=== PATIENT | female | born 1980 | race Caucasian/White ===

== ENCOUNTER 2017-02-28 01:19 | Emergency (ER) | payer MEDICAID ==
[2017-02-28 02:13] LABS: BASOPHIL % 0.3 % (0-2); PLATELET COUNT 208 x10^3mcL (130-400); RED CELL DISTRIBUTION WIDTH 13.5 % (11.5-14.5)
[2017-02-28 02:38] LABS: ALBUMIN 3.6 g/dL (3.4-5.0); ALKALINE PHOSPHATASE 48 U/L (46-116); ALT/SGPT 26 U/L (14-59); AST/SGOT 21 U/L (15-37); BILIRUBIN TOTAL 0.4 mg/dL (0.20-1.00); CALCIUM 8.3 mg/dL (8.5-10.1); CARBON DIOXIDE 29.5 mmol/L (21-32); CHLORIDE SERUM 103 mmol/L (98-107); CREATININE SERUM 0.9 mg/dL (0.6-1.0); GFR1 > 60 mL/min; GLUCOSE SERUM 110 mg/dL (74-106); POTASSIUM SERUM 3.5 mmol/L (3.5-5.1); SODIUM SERUM 137 mmol/L (136-145); TOTAL PROTEIN, SERUM 7.2 g/dL (6.4-8.2)
[2017-02-28 02:48] LABS: CK-MB < 0.5 ng/mL (0-3.6); CREATINE KINASE 86 U/L (26-192)
[2017-02-28 03:30] VITALS: BP 105/67
== END 2017-02-28 03:30 | disposition home or self-care (01) ==
LOC: ED 01:19
PROVIDERS: Emergency Medicine
DX: J18.9 Pneumonia, unspecified organism (principal)
CPT/HCPCS: 36415; 85378; Q0092

== ENCOUNTER 2017-09-18 16:02 | Emergency (ER) | payer SELFPAY ==
[~2017-09-18] VITALS: Ht 160 cm; Wt 70.8 kg
[2017-09-18 17:47] VITALS: BP 130/75
== END 2017-09-18 17:47 | disposition home or self-care (01) ==
LOC: ED 16:02
DX: R07.9 Chest pain, unspecified (principal)
CPT/HCPCS: J1885

== ENCOUNTER 2017-11-22 15:25 | Emergency (ER) | payer SELFPAY ==
[~2017-11-22] VITALS: Ht 160 cm; Wt 69.8 kg
[2017-11-22 15:29] VITALS: Ht 160 cm; Wt 69.8 kg
[2017-11-22 17:24] VITALS: BP 118/72
== END 2017-11-22 17:24 | disposition home or self-care (01) ==
LOC: ED 15:25
DX: T18.9XXA Foreign body of alimentary tract, part unspecified, initial encounter (principal); X58.XXXA Exposure to other specified factors, initial encounter; Y93.89 Activity, other specified; Y92.89 Other specified places as the place of occurrence of the external cause; Y99.8 Other external cause status
CPT/HCPCS: Q0092

== ENCOUNTER 2018-01-22 15:13 | Emergency (ER) | payer OTHER ==
[~2018-01-22] VITALS: Ht 160 cm; Wt 70.3 kg
[2018-01-22 16:00] VITALS: Ht 160 cm; Wt 70.3 kg
[2018-01-22 16:34] LABS: BASOPHIL % 0.4 % (0-2); PLATELET COUNT 210 x10^3mcL (130-400)
[2018-01-22 16:41] LABS: CALCIUM 9.2 mg/dL (8.5-10.1); CARBON DIOXIDE 27.6 mmol/L (21-32); CHLORIDE SERUM 104 mmol/L (98-107); CREATININE SERUM 0.8 mg/dL (0.6-1.0); GFR1 > 60 mL/min; GLUCOSE SERUM 100 mg/dL (74-106); POTASSIUM SERUM 3.6 mmol/L (3.5-5.1); SODIUM SERUM 137 mmol/L (136-145)
[2018-01-22 16:45] LABS: ALKALINE PHOSPHATASE 60 U/L (46-116); ALT/SGPT 24 U/L (14-59); AST/SGOT 19 U/L (15-37); BILIRUBIN TOTAL 0.45 mg/dL (0.20-1.00); TOTAL PROTEIN, SERUM 7.5 g/dL (6.4-8.2)
[2018-01-22 20:07] VITALS: BP 110/75
== END 2018-01-22 20:07 | disposition home or self-care (01) ==
LOC: ED 15:13
PROVIDERS: Emergency Medicine
DX: R51 Headache (principal); R53.1 Weakness; R11.0 Nausea
CPT/HCPCS: J0780; J1200; J7030

== ENCOUNTER 2019-03-15 21:26 | Emergency (ER) | payer OTHER ==
[~2019-03-15] VITALS: Ht 160 cm; Wt 70.3 kg
[2019-03-15 21:38] VITALS: Ht 160 cm; Wt 70.3 kg
[2019-03-15 22:52] LABS: BASOPHIL % 0.5 % (0-2); PLATELET COUNT 218 x10^3mcL (130-400); RED CELL DISTRIBUTION WIDTH 13.5 % (11.5-14.5)
[2019-03-15 23:00] LABS: CALCIUM 8.9 mg/dL (8.5-10.1); CHLORIDE SERUM 107 mmol/L (98-107); CREATININE SERUM 0.8 mg/dL (0.6-1.0); GFR1 > 60 mL/min; GLUCOSE SERUM 89 mg/dL (74-106); POTASSIUM SERUM 3.8 mmol/L (3.5-5.1); SODIUM SERUM 143 mmol/L (136-145)
[2019-03-15 23:05] LABS: ALBUMIN 3.7 g/dL (3.4-5.0); ALKALINE PHOSPHATASE 57 U/L (46-116); ALT/SGPT 23 U/L (14-59); AST/SGOT 18 U/L (15-37); BILIRUBIN TOTAL 0.3 mg/dL (0.20-1.00); TOTAL PROTEIN, SERUM 7.1 g/dL (6.4-8.2)
[2019-03-15 23:58] VITALS: BP 97/69
== END 2019-03-15 23:58 | disposition home or self-care (01) ==
LOC: ED 21:26
PROVIDERS: Emergency Medicine
DX: S29.011A Strain of muscle and tendon of front wall of thorax, initial encounter (principal); M94.0 Chondrocostal junction syndrome [Tietze]; M54.5 Low back pain; Z98.890 Other specified postprocedural states; X58.XXXA Exposure to other specified factors, initial encounter; Y93.89 Activity, other specified; Y92.89 Other specified places as the place of occurrence of the external cause; Y99.8 Other external cause status
CPT/HCPCS: 36415; J1885

== ENCOUNTER 2019-04-29 04:24 | Inpatient (IN) | payer OTHER ==
[~2019-04-29] VITALS: Ht 160 cm; Wt 73.2 kg
[2019-04-29 05:03] LABS: BASOPHIL % 0.6 % (0-2); PLATELET COUNT 246 x10^3mcL (130-400); RED CELL DISTRIBUTION WIDTH 13.7 % (11.5-14.5)
[2019-04-29 05:11] LABS: CALCIUM 8.7 mg/dL (8.5-10.1); CARBON DIOXIDE 25.6 mmol/L (21-32); CHLORIDE SERUM 105 mmol/L (98-107); CREATININE SERUM 0.7 mg/dL (0.6-1.0); GFR1 > 60 mL/min; GLUCOSE SERUM 122 mg/dL (74-106); POTASSIUM SERUM 3.8 mmol/L (3.5-5.1); SODIUM SERUM 139 mmol/L (136-145)
[2019-04-29 05:15] LABS: ALKALINE PHOSPHATASE 62 U/L (46-116); ALT/SGPT 17 U/L (14-59); AST/SGOT 15 U/L (15-37); BILIRUBIN TOTAL 0.44 mg/dL (0.20-1.00); LIPASE 140 IU/L (73-393); TOTAL PROTEIN, SERUM 7.5 g/dL (6.4-8.2)
[2019-04-29 08:08] LABS: UA SPECIFIC GRAVITY 1.015 (1.005-1.035); microscopic required? YES; urine erythrocyte NEGATIVE (NEGATIVE)
[2019-04-29 08:55] LABS: AMPHETAMINE QUAL UR NONE DETECTED (See below)
[2019-04-29 09:03] VITALS: BP 123/65
[2019-04-29 14:25] VITALS: BP 109/61
[2019-04-29 16:53] VITALS: BP 105/56
[2019-04-29 20:30] VITALS: BP 103/59
[2019-04-30 05:35] VITALS: BP 100/60
[2019-04-30 06:39] LABS: ALKALINE PHOSPHATASE 43 U/L (46-116); ALT/SGPT 104 U/L (14-59); AST/SGOT 75 U/L (15-37); BILIRUBIN DIRECT 0.16 mg/dL (0.0-0.2); BILIRUBIN TOTAL 0.6 mg/dL (0.20-1.00); CALCIUM 8.3 mg/dL (8.5-10.1); CARBON DIOXIDE 25.7 mmol/L (21-32); CHLORIDE SERUM 106 mmol/L (98-107); CREATININE SERUM 0.8 mg/dL (0.6-1.0); GFR1 > 60 mL/min; GLUCOSE SERUM 116 mg/dL (74-106); POTASSIUM SERUM 3.5 mmol/L (3.5-5.1); SODIUM SERUM 140 mmol/L (136-145)
[2019-04-30 09:36] VITALS: BP 92/60
[2019-04-30 13:16] LABS: BASOPHIL % 0.3 % (0-2); PLATELET COUNT 169 x10^3mcL (130-400); RED CELL DISTRIBUTION WIDTH 13.1 % (11.5-14.5)
[2019-04-30 18:01] VITALS: BP 91/52
[2019-04-30 20:11] VITALS: BP 100/59
[2019-05-01 05:36] VITALS: BP 115/69
[2019-05-01 06:03] LABS: CALCIUM 8.1 mg/dL (8.5-10.1); CARBON DIOXIDE 28.1 mmol/L (21-32); CHLORIDE SERUM 103 mmol/L (98-107); CREATININE SERUM 0.8 mg/dL (0.6-1.0); GFR1 > 60 mL/min; GLUCOSE SERUM 120 mg/dL (74-106); POTASSIUM SERUM 3.2 mmol/L (3.5-5.1); SODIUM SERUM 139 mmol/L (136-145)
[2019-05-01 06:46] LABS: BASOPHIL % 0.2 % (0-2); PLATELET COUNT 174 x10^3mcL (130-400); RED CELL DISTRIBUTION WIDTH 13.2 % (11.5-14.5)
[2019-05-01 08:26] VITALS: BP 99/61
[2019-05-01 10:30] VITALS: BP 99/61
[2019-05-01] MEDS ORDERED: FLA500 PO (10:41)
[2019-05-01] MEDS ORDERED: NORCO1 TA2 PO (10:41)
[2019-05-01] MEDS ORDERED: MOT600 PO (10:42)
== END 2019-05-01 11:40 | disposition home or self-care (01) | DRG 263 ==
LOC: ED 04:24 → MU 07:37
PROVIDERS: Emergency Medicine; Surgery; ADMIT Internal Medicine
PROC: 0FT44ZZ Resection of Gallbladder, Percutaneous Endoscopic Approach (ICD-10-PCS; principal; 2019-04-29 10:30)
DX: K80.62 Calculus of gallbladder and bile duct with acute cholecystitis without obstruction (principal); D72.829 Elevated white blood cell count, unspecified
CPT/HCPCS: G0378; J0694; J1170; J1885; J2270; J2405; J2543; J3010; J3490; J7030; Q0092

== ENCOUNTER 2019-05-04 00:17 | Emergency (ER) | payer OTHER ==
[~2019-05-04] VITALS: Ht 160 cm; Wt 72.6 kg
[~2019-05-04 00:17] MED LIST: FLA500 PO; MOT600 PO; NORCO1 TA2 PO
[2019-05-04 00:27] VITALS: Ht 160 cm; Wt 72.6 kg
[2019-05-04 01:11] LABS: BASOPHIL % 0.5 % (0-2); PLATELET COUNT 274 x10^3mcL (130-400); RED CELL DISTRIBUTION WIDTH 13.8 % (11.5-14.5)
[2019-05-04 01:21] LABS: CALCIUM 8.7 mg/dL (8.5-10.1); CARBON DIOXIDE 27.1 mmol/L (21-32); CHLORIDE SERUM 104 mmol/L (98-107); CREATININE SERUM 0.7 mg/dL (0.6-1.0); GFR1 > 60 mL/min; GLUCOSE SERUM 96 mg/dL (74-106); POTASSIUM SERUM 3.9 mmol/L (3.5-5.1); SODIUM SERUM 140 mmol/L (136-145)
[2019-05-04 01:25] LABS: ALBUMIN 3.4 g/dL (3.4-5.0); ALKALINE PHOSPHATASE 50 U/L (46-116); ALT/SGPT 49 U/L (14-59); AST/SGOT 16 U/L (15-37); BILIRUBIN TOTAL 0.34 mg/dL (0.20-1.00); MAGNESIUM 2.2 mg/dL (1.8-2.4); TOTAL PROTEIN, SERUM 7.3 g/dL (6.4-8.2)
[2019-05-04 02:32] VITALS: BP 115/64
== END 2019-05-04 02:32 | disposition home or self-care (01) ==
LOC: ED 00:17
PROVIDERS: Emergency Medicine
DX: R00.2 Palpitations (principal); F41.9 Anxiety disorder, unspecified; Z98.890 Other specified postprocedural states; Z90.49 Acquired absence of other specified parts of digestive tract
CPT/HCPCS: 36415; Q0092

== ENCOUNTER 2019-08-27 13:11 | Emergency (ER) | payer OTHER ==
[~2019-08-27] VITALS: Ht 160 cm; Wt 68.9 kg
[2019-08-27 13:20] VITALS: Ht 160 cm; Wt 68.9 kg
[2019-08-27 13:51] LABS: BASOPHIL % 0.4 % (0-2); PLATELET COUNT 234 x10^3mcL (130-400)
[2019-08-27 14:28] LABS: CARBON DIOXIDE 28.3 mmol/L (21-32); CHLORIDE SERUM 103 mmol/L (98-107); CREATININE SERUM 0.7 mg/dL (0.6-1.0); GFR1 > 60 mL/min; GLUCOSE SERUM 105 mg/dL (74-106); POTASSIUM SERUM 3.3 mmol/L (3.5-5.1); SODIUM SERUM 139 mmol/L (136-145)
[2019-08-27 14:32] LABS: ALBUMIN 3.9 g/dL (3.4-5.0); ALKALINE PHOSPHATASE 269 U/L (46-116); ALT/SGPT 123 U/L (14-59); AST/SGOT 71 U/L (15-37); BILIRUBIN TOTAL 0.8 mg/dL (0.20-1.00); LIPASE 179 IU/L (73-393); MAGNESIUM 2.1 mg/dL (1.8-2.4); TOTAL PROTEIN, SERUM 7.7 g/dL (6.4-8.2)
[2019-08-27 17:34] VITALS: BP 102/67
== END 2019-08-27 17:34 | disposition home or self-care (01) ==
LOC: ED 13:11
PROVIDERS: Emergency Medicine
DX: R07.89 Other chest pain (principal); R00.2 Palpitations; R03.0 Elevated blood-pressure reading, without diagnosis of hypertension; Z98.890 Other specified postprocedural states; Z90.49 Acquired absence of other specified parts of digestive tract
CPT/HCPCS: 36415

== ENCOUNTER 2019-09-15 14:58 | Emergency (ER) | payer OTHER ==
[~2019-09-15] VITALS: Ht 160 cm; Wt 68.9 kg
[2019-09-15 15:06] VITALS: Ht 160 cm; Wt 68.9 kg
[2019-09-15 16:49] VITALS: BP 126/73
== END 2019-09-15 16:49 | disposition home or self-care (01) ==
LOC: ED 14:58
DX: R07.89 Other chest pain (principal); R06.02 Shortness of breath; Z98.890 Other specified postprocedural states
CPT/HCPCS: J1885; Q0092